=== PATIENT | male | born 1965 | race Caucasian/White ===

== ENCOUNTER → 2018-12-26 | Outpatient (CLI) | payer BC ==
--- NOTE | 2018-12-26 14:08 | KCIC ---
MR of the left knee HISTORY: Posterior knee edema. Increased knee pain. Locking. TECHNIQUE: Routine multiplanar sequences are obtained. FINDINGS: Abnormal signal within the posterior horn the medial meniscus compatible with a tear. There is a small posterior para meniscal cyst. No evidence of a lateral meniscal tear. The anterior and posterior cruciate ligaments are intact. Medial collateral ligament is intact. Iliotibial band unremarkable. Fibular collateral ligament, biceps femoris tendon and popliteus tendon are intact. The extensor mechanism is intact. Small joint effusion. No evidence of acute articular cartilage defect. There is mild heterogeneous signal within the lateral tibial plateau cartilage compatible with chondromalacia. No bone destruction, acute fracture or significant marrow pathology. IMPRESSION: Medial meniscal tear. Electronically signed by: Kaushik Mandujano MD (12/26/2018 2:05 PM) [id number]
== END | disposition home or self-care (01) ==
LOC: KCIC MRI 12:02
PROVIDERS: ATTEND Nurse Practitioner Family
DX: S83.242A Other tear of medial meniscus, current injury, left knee, initial encounter (principal); M25.462 Effusion, left knee; X58.XXXA Exposure to other specified factors, initial encounter; Y93.89 Activity, other specified; Y92.89 Other specified places as the place of occurrence of the external cause; Y99.8 Other external cause status
CPT/HCPCS: 73721